=== PATIENT | female | born 1950 | race Caucasian/White ===

== ENCOUNTER 2020-01-09 16:29 | Outpatient (CLI) | payer MEDICARE, OTHER ==
[2020-01-09 16:48] LABS: INR-International Normal Ratio 1.1; PTT 36.2 sec (22.9-36.1); Prothrombin Time 13.9 sec (12.0-14.7)
== END 2020-01-09 16:30 | disposition home or self-care (01) ==
LOC: MADLAB 16:29
PROVIDERS: ATTEND Family Medicine
DX: Z51.81 Encounter for therapeutic drug level monitoring (principal); Z79.899 Other long term (current) drug therapy
CPT/HCPCS: 36415; 85610; 85730

== ENCOUNTER 2020-01-16 12:20 | Outpatient (CLI) | payer MEDICARE, OTHER ==
--- NOTE | 2020-01-16 12:57 | RAD ---
XR Shoulder Lt 3 View STANDARD HISTORY: Left shoulder pain FINDINGS: No fracture or dislocation or bony destruction is identified. There are mild degenerative changes in the acromioclavicular joint.
== END 2020-01-16 12:21 | disposition home or self-care (01) ==
LOC: MADRAD 12:20
PROVIDERS: ATTEND Family Medicine
DX: M25.512 Pain in left shoulder (principal)

== ENCOUNTER 2020-06-30 15:58 | Outpatient (CLI) | payer MEDICARE ==
[2020-06-30 16:14] LABS: Prothrombin Time 13.1 sec (12.0-14.7)
[2020-06-30 16:57] LABS: Anion Gap 17 mmol/L (10-20); BUN (Urea Nitrogen) 21 mg/dL (9.8-20.1); Calc. Creatinine Clearance 0 mL/min (70-130); Calcium 8.7 mg/dL (7.8-10.44); Carbon Dioxide 20 mmol/L (23-31); Chloride 109 mmol/L (98-107); Glucose 93 mg/dL (83-110); Sodium 142 mmol/L (136-145)
[2020-06-30 18:24] LABS: #Basophils 0.2 thou/uL (0.0-0.2); #Eosinphils 0.4 thou/uL (0.0-0.7); #Lymphocytes 1.3 thou/uL (1.20-3.40); #Monocytes 0.8 thou/uL (0.11-0.59); #Neutrophils 5.8 thou/uL (1.40-6.50); %Basophils 2.3 % (0.0-1.0); %Eosinophils 4.5 % (0.0-10.0); %Lymphocytes 15.6 % (21.0-51.0); %Monocytes 9.1 % (0.0-10.0); %Neutrophils 68.6 % (42.0-75.0); Anisocytosis SLIGHT = 6-15 cells (100X) (0-5/hpf); Hemoglobin 10.5 g/dL (12.0-16.0); Hypochromia SLIGHT = 6-15 cells (100X) (0-5/hpf); MDiff Complete? YES; Mean Corpuscular Hemoglobin 24.2 pg (27.0-31.0); Mean Corpuscular Volume 80.6 fL (78.0-98.0); Mean Platelet Volume 8.5 fL (7.4-10.4); Platelet Count 320 thou/uL (130-400); Platelet Morphology Comment Appears Adequate; RBC Distribution Width 16.3 % (11.5-14.5); Red Blood Cell (RBC) Count 4.34 mill/uL (4.20-5.40); White Blood Cell (WBC) Count 8.5 thou/uL (4.8-10.8)
== END 2020-06-30 15:59 | disposition home or self-care (01) ==
LOC: MADLAB 15:58
PROVIDERS: ATTEND Family Medicine
DX: Z01.812 Encounter for preprocedural laboratory examination (principal)
CPT/HCPCS: 36415; 80048; 85025; 85610

== ENCOUNTER 2021-06-01 07:18 | Emergency (ER) | payer MEDICARE ==
[2021-06-01] MEDS ORDERED: Sodium Chloride 0.9% 1,000 ML ONE (08:08)
[2021-06-01] MEDS ORDERED: Ondansetron PF 4 MG/2 ML Vial ONE (08:08)
[2021-06-01 08:39] LABS: ALT (SGPT) 29 U/L (8-55); AST (SGOT) 18 U/L (5-34); Albumin 3.7 g/dL (3.4-4.8); Alkaline Phosphatase 70 U/L (40-110); Anion Gap 14 mmol/L (10-20); BUN (Urea Nitrogen) 28 mg/dL (9.8-20.1); Bilirubin, Total 0.6 mg/dL (0.2-1.2); CK (CPK) 32 U/L (29-168); Calc. Creatinine Clearance 0 mL/min (70-130); Calcium 8.5 mg/dL (7.8-10.44); Carbon Dioxide 22 mmol/L (23-31); Chloride 104 mmol/L (98-107); Globulin 2.3 g/dL (2.4-3.5); Glucose 94 mg/dL (83-110); Potassium 3.9 mmol/L (3.5-5.1); Sodium 136 mmol/L (136-145)
[2021-06-01 08:44] LABS: #Basophils 0.1 thou/uL (0.0-0.2); #Lymphocytes 0.5 thou/uL (1.20-3.40); #Monocytes 0.5 thou/uL (0.11-0.59); %Basophils 0.7 % (0.0-1.0); %Eosinophils 0.2 % (0.0-10.0); %Lymphocytes 3.8 % (21.0-51.0); %Monocytes 3.8 % (0.0-10.0); %Neutrophils 91.5 % (42.0-75.0); Hemoglobin 10.5 g/dL (12.0-16.0); Mean Corpuscular HGB CONC 31.2 g/dL (32.0-36.0); Mean Corpuscular Hemoglobin 24.7 pg (27.0-31.0); Mean Corpuscular Volume 79.2 fL (78.0-98.0); Mean Platelet Volume 6.9 fL (7.4-10.4); Platelet Count 434 thou/uL (130-400); RBC Distribution Width 20.3 % (11.5-14.5); Red Blood Cell (RBC) Count 4.25 mill/uL (4.20-5.40); White Blood Cell (WBC) Count 14.2 thou/uL (4.8-10.8)
[2021-06-01 08:48] LABS: Anisocytosis SLIGHT = 6-15 cells (100X) (0-5/hpf); Platelet Morphology Comment Appears Adequate
[2021-06-01 09:43] LABS: SARS-CoV-2 NAA Rapid Test Not Detected (NotDetected)
[2021-06-01] MEDS ORDERED: Lactated Ringer's 1,000 ML ONE (10:56)
[2021-06-01] MEDS ORDERED: Ketorolac Tromethamine 30 MG/ML VIAL ONE (10:56)
[2021-06-01] MEDS ORDERED: diphenhydrAMINE 50 MG/ML VIAL ONE (11:07)
[2021-06-01] MEDS ORDERED: Metoclopramide HCl 10 MG/2 ML VIAL ONE (11:07)
[2021-06-01] MEDS ORDERED: Prochlorperazine 10 MG/2 ML VIAL ONE (11:08)
[2021-06-01 13:15] LABS: Bilirubin Negative (Negative); Blood, Urine Negative (Negative); Clarity Clear (Clear); Glucose, Urine (Dipstick) Negative (Negative); Ketone, Urine Negative (Negative); Leukocyte Small (Negative); Nitrite Negative (Negative); Protein, Urine (Dipstick) Negative (Neg-Trace); Specific Gravity, Urine 1.025 (1.005-1.030); Urobilinogen 0.2 mg/dL (Less than 2); pH, Urine 6.5 (5.0-9.0)
[2021-06-01 13:20] LABS: Bacteria/HPF Rare-Few HPF (None Seen); RBC/HPF 0-3 HPF (0-3); Transitional Epithelial 0-3 HPF (None Seen)
== END 2021-06-01 13:49 | disposition home or self-care (01) ==
LOC: MADERS 07:18
DX: E86.0 Dehydration (principal); D72.829 Elevated white blood cell count, unspecified; R11.2 Nausea with vomiting, unspecified; Z20.822 Contact with and (suspected) exposure to COVID-19; J43.9 Emphysema, unspecified; Z86.73 Personal history of transient ischemic attack (TIA), and cerebral infarction without residual deficits; Z87.891 Personal history of nicotine dependence
CPT/HCPCS: 0240U; 71045; 80053; 82550; 83605; 83690; 84484; 85025; 86140; 87040; 93005; 81003; 81015; 96374; 96375; J0780; J1200; J1885; J2405; J2765; J7050; J7120

== ENCOUNTER 2021-06-23 03:50 | Emergency (ER) | payer MEDICARE ==
[2021-06-23] MEDS ORDERED: Albuterol Sulfate 2.5 mg/0.5 ml Neb ONE (03:53)
[2021-06-23] MEDS ORDERED: Magnesium 2 GM/50 ML BAG (IN WATER) ONE (04:30)
[2021-06-23] MEDS ORDERED: Azithromycin 500 MG VIAL ONE (04:30)
[2021-06-23] MEDS ORDERED: methylPREDNISolone Sod Succ/PF 125 MG/2 ML VIAL ONE (04:30)
[2021-06-23 04:51] LABS: ALT (SGPT) 50 U/L (8-55); AST (SGOT) 27 U/L (5-34); Albumin 4.5 g/dL (3.4-4.8); Alkaline Phosphatase 102 U/L (40-110); Anion Gap 16 mmol/L (10-20); BUN (Urea Nitrogen) 17 mg/dL (9.8-20.1); Bilirubin, Total 0.3 mg/dL (0.2-1.2); CK (CPK) 36 U/L (29-168); Calc. Creatinine Clearance 0 mL/min (70-130); Calcium 9.3 mg/dL (7.8-10.44); Carbon Dioxide 24 mmol/L (23-31); Chloride 109 mmol/L (98-107); Globulin 2.4 g/dL (2.4-3.5); Glucose 102 mg/dL (83-110); Magnesium 1.7 mg/dL (1.6-2.6); Potassium 4.4 mmol/L (3.5-5.1); Protein, Total 6.9 g/dL (5.8-8.1); Sodium 145 mmol/L (136-145)
[2021-06-23] MEDS ORDERED: cefTRIAXone\\ROCEPHIN 1 GM VIAL ONE (05:12)
[2021-06-23 05:29] LABS: #Basophils 0.3 thou/uL (0.0-0.2); #Eosinphils 0.2 thou/uL (0.0-0.7); #Lymphocytes 2.5 thou/uL (1.20-3.40); #Monocytes 0.8 thou/uL (0.11-0.59); #Neutrophils 15.7 thou/uL (1.40-6.50); %Basophils 1.4 % (0.0-1.0); %Eosinophils 0.9 % (0.0-10.0); %Lymphocytes 12.8 % (21.0-51.0); %Neutrophils 80.8 % (42.0-75.0); Hemoglobin 12.3 g/dL (12.0-16.0); Hypochromia SLIGHT = 6-15 cells (100X) (0-5/hpf); MDiff Complete? YES; Mean Corpuscular Hemoglobin 25.1 pg (27.0-31.0); Mean Corpuscular Volume 83.5 fL (78.0-98.0); Mean Platelet Volume 6.7 fL (7.4-10.4); Ovalocytes SLIGHT = 2-5 cells (100X) (0-1/hpf); Platelet Count 516 thou/uL (130-400); Polychromasia SLIGHT = 2-3 cells (100X) (0-2/hpf); RBC Distribution Width 20.7 % (11.5-14.5); Red Blood Cell (RBC) Count 4.92 mill/uL (4.20-5.40); White Blood Cell (WBC) Count 19.4 thou/uL (4.8-10.8)
[2021-06-23 05:30] LABS: Base Excess-Venous -1.7 mmol/L (-2.0 to 3.0); Bicarbonate (HCO3v) 23.8 mmol/L (22.0-28.0); CO2 Tension (PvCO2) 42.5 mmHg (42.0-51.0); Calcium, Ionized 1.11 mmol/L (1.15-1.33); Chloride 108 mmol/L (98-107); Potassium 4.1 mmol/L (3.5-5.1); Sodium 147 mmol/L (138-145); T. Carbon Dioxide 25.1 mmol/L (22.0-28.0); vO2 Saturation-calc 98.4 % (60.0-85.0)
[2021-06-23 06:02] LABS: SARS-CoV-2 NAA Rapid Test Not Detected (NotDetected)
== END 2021-06-23 06:07 | disposition short-term general hospital (02) ==
LOC: MADERS 03:50
DX: A41.9 Sepsis, unspecified organism (principal); R06.03 Acute respiratory distress; Z20.822 Contact with and (suspected) exposure to COVID-19; J44.9 Chronic obstructive pulmonary disease, unspecified; Z86.73 Personal history of transient ischemic attack (TIA), and cerebral infarction without residual deficits; Z87.891 Personal history of nicotine dependence
CPT/HCPCS: 0240U; 71045; 80053; 82330; 82435; 82550; 82803; 83605; 83735; 83880; 84132; 84295; 84484; 85014; 85025; 87040; 93005; 96365; 96367; 96368; 96375; 99292; J0456; J0696; J2930; J3475; J7611; J7620

== ENCOUNTER 2021-11-07 08:17 | Emergency (ER) | payer MEDICARE ==
[2021-11-07] MEDS ORDERED: Bacitracin 1 PK ONE (08:36)
[2021-11-07] MEDS ORDERED: Cyclobenzaprine 10 MG TAB ONE (08:54)
== END 2021-11-07 09:50 | disposition home or self-care (01) ==
LOC: MADERS 08:17
DX: S41.112A Laceration without foreign body of left upper arm, initial encounter (principal); S41.012A Laceration without foreign body of left shoulder, initial encounter; S51.012A Laceration without foreign body of left elbow, initial encounter; S70.02XA Contusion of left hip, initial encounter; S00.12XA Contusion of left eyelid and periocular area, initial encounter; E78.5 Hyperlipidemia, unspecified; J44.9 Chronic obstructive pulmonary disease, unspecified; Z87.891 Personal history of nicotine dependence; Z86.73 Personal history of transient ischemic attack (TIA), and cerebral infarction without residual deficits; Z79.82 Long term (current) use of aspirin; Z79.899 Other long term (current) drug therapy; Z79.51 Long term (current) use of inhaled steroids
CPT/HCPCS: 70450; 72125

== ENCOUNTER 2024-06-18 10:15 | Emergency (ER) | payer MEDICARE ==
[2024-06-18 10:57] LABS: Hematocrit 39.1 % (36.0-47.0); Hemoglobin 12.3 g/dL (12.0-16.0); Mean Corpuscular HGB CONC 31.6 g/dL (32.0-36.0); Mean Corpuscular Hemoglobin 28.4 pg (27.0-31.0); Mean Platelet Volume 9.1 fL (7.4-10.4); Platelet Count 252 10x3/uL (130-400); RBC Distribution Width 13.1 % (11.5-14.5); Red Blood Cell (RBC) Count 4.35 mill/uL (4.20-5.40); White Blood Cell (WBC) Count 7.4 10x3/uL (4.8-10.8)
[2024-06-18 11:05] LABS: Band 2 % (5-11); Eosinophils 4 % (0-10); Lymphocytes 8 % (21-51); MDiff Complete? YES; Manual Diff?? YES; Monocytes 7 % (0-10); Neutrophil 74 % (42-75); RBC Morph Comment Within Normal Limits; Reactive Lymphocytes 5 % (0-10)
[2024-06-18 11:06] LABS: Platelet Adequacy Comment Appears Adequate
[2024-06-18 11:12] LABS: ALT (SGPT) 18 U/L (8-55); AST (SGOT) 19 U/L (5-34); Albumin 3.6 g/dL (3.4-4.8); Alkaline Phosphatase 144 U/L (40-110); Anion Gap 17 mmol/L (10-20); BUN (Urea Nitrogen) 12 mg/dL (9.8-20.1); Bilirubin, Total 0.5 mg/dL (0.2-1.2); Calc. Creatinine Clearance 0 mL/min (70-130); Calcium 9.1 mg/dL (7.8-10.44); Carbon Dioxide 20 mmol/L (23-31); Chloride 104 mmol/L (98-107); Estimated GFR 54; Globulin 3.3 g/dL (2.4-3.5); Glucose 118 mg/dL (83-110); Potassium 4.4 mmol/L (3.5-5.1); Protein, Total 6.9 g/dL (5.8-8.1); Sodium 137 mmol/L (136-145)
[2024-06-18 11:13] LABS: Troponin I 0.011 ng/mL (< 0.028)
[2024-06-18] MEDS ORDERED: cefTRIAXone (ROCEPHIN) 1 GM VIAL ONE (11:25)
[2024-06-18] MEDS ORDERED: methylPREDNISolone Sod Succ/PF 125 MG/2 ML VIAL ONE (11:25)
[2024-06-18] MEDS ORDERED: Sodium Chloride 0.9% 100 ML ONE (11:25)
[2024-06-18] MEDS ORDERED: Sodium Chloride 0.9% 1,000 ML ONE ×2 (11:25→11:59)
[2024-06-18] MEDS ORDERED: Acetaminophen 500 MG TAB ONE (11:59)
[2024-06-18] MEDS ORDERED: Azithromycin 250 MG TAB ONE (13:01)
[2024-06-18 14:53] LABS: Bilirubin Negative (Negative); Blood, Urine Trace (Negative); Glucose, Urine (Dipstick) Negative (Negative); Ketone, Urine Negative (Negative); Leukocyte Small (Negative); Nitrite Negative (Negative); Protein, Urine (Dipstick) Negative (Neg-Trace); Urobilinogen 0.2 mg/dL (Less than 2); pH, Urine 5.5 (5.0-9.0)
[2024-06-18] MEDS ORDERED: Albuterol 2.5 MG (3 mL) NEB ONE (14:56)
[2024-06-18] MEDS ORDERED: Albuterol 2.5 MG (0.5 mL) NEB ONE (14:56)
[2024-06-18 14:57] LABS: Clarity Hazy (Clear)
[2024-06-18 14:59] LABS: Bacteria/HPF Rare-Few HPF (None Seen); CAUTI Indications for Culture Dysuria,urgency,freq; Mucous/LPF 1+ LPF (<2+); RBC/HPF 0-3 HPF (0-3); Urine Culture Reflex No No
[2024-06-18 15:18] LABS: CO2 Tension (PvCO2) 32.1 mmHg (42.0-51.0)
[2024-06-18 15:19] LABS: Base Excess-Venous -5.6 mmol/L (-2.0 to 3.0); Bicarbonate (HCO3v) 18.8 mmol/L (22.0-28.0); Hemoglobin - Calc 11.8 g/dL (12.0-16.0); Potassium 3.9 mmol/L (3.5-5.1); Sodium 141 mmol/L (138-145); vO2 Saturation-calc 99.6 % (60.0-85.0)
[2024-06-18 15:20] LABS: Calcium, Ionized 1.05 mmol/L (1.15-1.33); Chloride 111 mmol/L (98-107); T. Carbon Dioxide 19.7 mmol/L (22.0-28.0)
[2024-06-18] MEDS ORDERED: Oxymetazoline HCl 0.05% (30 ML BOT) ONE (22:13)
[2024-06-19 06:17] LABS: ALT (SGPT) 16 U/L (8-55); AST (SGOT) 14 U/L (5-34); Albumin 3.2 g/dL (3.4-4.8); Alkaline Phosphatase 117 U/L (40-110); Anion Gap 14 mmol/L (10-20); BUN (Urea Nitrogen) 11 mg/dL (9.8-20.1); Bilirubin, Total 0.3 mg/dL (0.2-1.2); Calc. Creatinine Clearance 0 mL/min (70-130); Calcium 8.8 mg/dL (7.8-10.44); Carbon Dioxide 20 mmol/L (23-31); Chloride 114 mmol/L (98-107); Estimated GFR 67; Globulin 2.8 g/dL (2.4-3.5); Glucose 113 mg/dL (83-110); Potassium 4.4 mmol/L (3.5-5.1); Sodium 144 mmol/L (136-145)
[2024-06-19 06:21] LABS: Red Blood Cell (RBC) Count 3.73 mill/uL (4.20-5.40); White Blood Cell (WBC) Count 8.9 10x3/uL (4.8-10.8)
[2024-06-19 06:22] LABS: Hematocrit 33.5 % (36.0-47.0); Hemoglobin 10.6 g/dL (12.0-16.0); MDiff Complete? YES; Manual Diff?? YES; Mean Corpuscular HGB CONC 31.7 g/dL (32.0-36.0); Mean Corpuscular Hemoglobin 28.5 pg (27.0-31.0); Mean Platelet Volume 9.2 fL (7.4-10.4); Platelet Count 264 10x3/uL (130-400); RBC Distribution Width 13.2 % (11.5-14.5)
[2024-06-19 06:27] LABS: Band 4 % (5-11); Lymphocytes 6 % (21-51); Monocytes 10 % (0-10); Neutrophil 80 % (42-75)
[2024-06-19 06:28] LABS: Anisocytosis SLIGHT = 6-15 cells (100X) (0-5/hpf); Platelet Adequacy Comment Appears Adequate
[2024-06-19] MEDS ORDERED: methylPREDNISolone Sod Succ/PF 125 MG/2 ML VIAL ONE (10:25)
[2024-06-19] MEDS ORDERED: cefTRIAXone (ROCEPHIN) 1 GM VIAL ONE (10:25)
[2024-06-19] MEDS ORDERED: Sodium Chloride 0.9% 100 ML ONE (10:25)
== END 2024-06-19 11:10 | disposition home or self-care (01) ==
LOC: MADERS 10:15
DX: J18.9 Pneumonia, unspecified organism (principal); J44.1 Chronic obstructive pulmonary disease with (acute) exacerbation; R65.20 Severe sepsis without septic shock; A41.9 Sepsis, unspecified organism; E78.5 Hyperlipidemia, unspecified; Z87.891 Personal history of nicotine dependence; Z79.82 Long term (current) use of aspirin
CPT/HCPCS: 71045; 80053; 81001; 82330; 82803; 83605; 83880; 84484; 85025; 87040; 87086; 87428; 93005; 96365; 96366; 96375; 96376; J0696; J2919; J7030; J7611

== ENCOUNTER 2024-07-07 09:20 | Emergency (ER) | payer MEDICARE | END 2024-07-07 10:40 | disposition home or self-care (01) | LOC: MADERS 09:20 | DX: J44.1 Chronic obstructive pulmonary disease with (acute) exacerbation (principal); E78.5 Hyperlipidemia, unspecified; Z79.82 Long term (current) use of aspirin; Z87.891 Personal history of nicotine dependence | CPT/HCPCS: 71046; 87400; 87426 ==